=== PATIENT | female | born 1960 | race Caucasian/White ===

== ENCOUNTER 2024-06-21 06:27 | Day surgery (SDC) | payer BC, SELFPAY ==
[2024-06-17 09:17] LABS: % Basophils 0.9 % (0-2); % Eosinophils 1.8 % (0-6); % Immature Granulocytes 0.4 % (0-0.5); % Monocytes 6.9 % (1.7-9.3); Absolute Basophils 0.1 10^3/uL (0-0.2); Absolute Eosinophils 0.1 10^3/uL (0-0.7); Absolute Lymphocytes 1.6 10^3/uL (1.2-3.4); Absolute Monocytes 0.4 10^3/uL (0.1-0.6); Absolute Neutrophils 3.4 10^3/uL (1.4-6.5); Hematocrit 44.7 % (37.0-47.0); Hemoglobin 14.9 g/dL (12.0-16.0); Mean Corp Hgb Conc. 33.3 g/dL (33.0-37.0); Mean Corpuscular Hgb 30.2 pg (27.0-31.0); Mean Corpuscular Volume 90.5 fL (81.0-99.0); Mean Platelet Volume 9.1 fL (7.4-10.4); Nucleated Red Blood Cells % 0 %; Platelet Count 312 10^3/uL (130-400); Red Blood Cell Count 4.94 10^6/uL (4.20-5.40); Red Cell Dist. Width 13.3 % (11.5-14.5); White Blood Cell Count 5.6 10^3/uL (4.8-10.8)
[2024-06-17 11:31] LABS: Blood Urea Nitrogen 12 mg/dl (7-17); Calcium 9.4 mg/dl (8.4-10.2); Carbon Dioxide 24 mmol/L (22-30); Chloride 100 mmol/L (98-107); Glucose 99 mg/dl (70-99); Potassium 4.5 mmol/L (3.5-5.1); Sodium 140 mmol/L (135-145); eGFR > 60.00
[2024-06-21] VITALS (7 sets, daily range): BP systolic 123–157; BP diastolic 74–80; BMI 31.3
[2024-06-21] MEDS: NORMOSOL-R/PLASMALYTE-A 1000 IV (10:16)
[2024-06-21] MEDS: TYLENOL 1000 MG PO (10:19)
[2024-06-21] MEDS: CELEBREX 200 MG PO (10:19)
--- NOTE | 2024-06-21 11:51 | W.IMMPOSTOP ---
Surgical Immed Post Op Note
-
Primary Surgeon: Mavis Joy,
Assisting Surgeon: none
Pre-op Diagnosis: Thickened endometrial lining on ultrasound
Post-op Diagnosis: same; endocervical polyp, endometrial polyp
Procedure Performed: Diagnostic hysteroscopy D&C polypectomy with myosure
Anesthesia Type: general LMA Dr. Aguilera
Specimen / Cultures: 1. endocervical curettings with polyp 2. endometrial curettings 3. endometrial polyp-resected
Estimated Blood Loss: 10ml
Complications: none
Operative Findings: Uterus sounded to 7cm; tiny papillary polyp noted in endocervical canal; Larger polyp in endometrial cavity. Bilateral tubal ostia seen.
Fluid deficit: 145ml NSS
Counts correct times 2.
Stable to recovery.
Dictated # [id number]
== END 2024-06-21 13:27 | disposition home or self-care (01) ==
LOC: SDS 06:27
PROVIDERS: ATTENDING PHYSICIAN Obstetrics & Gynecology; FAMILY PHYSICIAN Family Medicine
PROC: 0UB98ZX Excision of Uterus, Via Natural or Artificial Opening Endoscopic, Diagnostic (ICD-10-PCS; 2024-06-21)
DX: N84.0 Polyp of corpus uteri (principal); N84.1 Polyp of cervix uteri; E66.9 Obesity, unspecified; I10 Essential (primary) hypertension; Z68.32 Body mass index [BMI] 32.0-32.9, adult; Z88.0 Allergy status to penicillin; Z80.41 Family history of malignant neoplasm of ovary; Z80.3 Family history of malignant neoplasm of breast
CPT/HCPCS: 58558; 88305; 36415; 80048; 85025; 86850; 86900; 86901; 93005